=== PATIENT | female | born 1965 | race African-American/Black ===

== ENCOUNTER 2016-12-22 20:13 | Inpatient (IN) | payer OTHER ==
[~2016-12-22] VITALS: Ht 154.9 cm; Wt 88.1 kg
[~2016-12-22 20:13] MED LIST: HYDR12.58 PO; LISI10TA2 PO; LORA10TA68 PO; VALA500T PO
[2016-12-22 21:40] VITALS: BP 142/85
[2016-12-22] MEDS ORDERED: valACYclovir 500 MG TABLET. PO PRN (23:15)
[2016-12-22] MEDS ORDERED: CETIRIZINE HCL 10 MG TABLET PO PRN (23:15)
[2016-12-22] MEDS ORDERED: FLUT16SP NS (23:17)
[2016-12-22] MEDS: MORPHINE SULFATE 2 MG/ML DISP.SYRIN. IV PRN (23:31)
[2016-12-22] MEDS: IV NORMAL SALINE 1000ML BAG 1,000 ML IV SCH (23:35)
[2016-12-22] MEDS ORDERED: MONT10TA9 PO ×3 (23:42→23:47)
[2016-12-23] MEDS ORDERED: MONTELUKAST SODIUM 10 MG TABLET. PO ONE (00:15)
[2016-12-23 01:34] LABS: BASO # 0.1 x10^3/uL (0.0-0.2); BASO % 1 % (0-3); EOS % 1 % (0-3); HEMATOCRIT 36.3 % (36.0-47.0); HEMOGLOBIN 11.8 g/dL (12.0-15.5); LYMPH # 1.9 x10^3/uL (1.0-4.8); LYMPH % 21 % (24-48); MEAN CORPUSCULAR HEMOGLOBIN 28 pg (25-35); MEAN CORPUSCULAR HGB CONC 33 g/dL (31-37); MEAN CORPUSCULAR VOLUME 87 fL (79-100); MONO % 13 % (0-9); NEUT % 64 % (31-73); PLATELET COUNT 252 x10^3/uL (140-400); RED BLOOD COUNT 4.16 x10^6/uL (3.50-5.40); RED CELL DISTRIBUTION WIDTH 14.5 % (11.5-14.5); WHITE BLOOD COUNT 8.8 x10^3/uL (4.0-11.0)
[2016-12-23 01:56] LABS: CREATININE 0.8 mg/dL (0.6-1.0); GFR 91.1; POTASSIUM 3.6 mmol/L (3.5-5.1)
[2016-12-23 02:58] VITALS: BP 108/73
[2016-12-23] MEDS: ONDANSETRON PF 4 MG/2 ML VIAL. IV PRN (05:16)
[2016-12-23] MEDS: MORPHINE SULFATE 2 MG/ML DISP.SYRIN. IV PRN ×2 (05:17→14:07)
[2016-12-23 07:00] VITALS: BP 129/86
[2016-12-23] MEDS ORDERED: INFLUENZA VAX SCREEN BY RX. MC PRN (08:30)
[2016-12-23] MEDS ORDERED: MONTELUKAST SODIUM 10 MG TABLET. PO SCH ×3 (09:00→21:00)
[2016-12-23] MEDS: LISINOPRIL 10 MG TABLET PO SCH (09:01)
--- NOTE | 2016-12-23 09:06 | PDOC ---
Provider Note Provider Note Onc consult dictated- [id number] 10 cm uterine mass, favoring being fibroid Left abd pain, no menorrhagia Defer to bookkeeping service sales agent for likely outpt removal GENA COSTA DO Dec 23, 2016 09:06
[2016-12-23] MEDS ORDERED: FLU VACC QUAD 2016-17 (36MOS+)/PF 0.5 ML SYRINGE. VAX IM ONE (10:00)
--- NOTE | 2016-12-23 10:51 | CONS ---
DATE OF CONSULTATION: 12/23/2016 REFERRING PROVIDER: Dr. Hunter. REASON FOR CONSULTATION: Uterine mass. HISTORY OF PRESENT ILLNESS: The patient is a 51-year-old obese -[place] female, who presented to [facility] Emergency Room with nausea, vomiting and possible reported diarrhea. She had had some back and left-sided abdominal pain for the last week, which had increased in intensity. It actually is better when she has been active during the day, it increases in intensity when she is lying down flat or is having a bowel movement. She denies any menorrhagia. She states her periods are actually light. She has never had a colonoscopy, but denies any melena or hematochezia. She has intentionally been trying to lose weight and has lost [address] there showed a 10 cm uterine mass favoring a fibroid etiology. Pelvic ultrasound showed 2 large masses likely benign, but given the size, there is consideration could be leiomyosarcoma. Her pain has improved since admission. PAST MEDICAL HISTORY: Seasonal allergies, hypertension and obesity. PAST SURGICAL HISTORY: Left knee arthroscopy x 3. FAMILY HISTORY: Dad from kidney problems. Mom is alive and has had her thyroid remove. She has a sister, who has diabetes. SOCIAL HISTORY: She denies any tobacco, alcohol or drug use. She works as a retail sales professional and appears very active at baseline. ALLERGIES: No known drug allergies. CURRENT MEDICATIONS: Singulair, lisinopril, Flonase, Zofran, normal saline, Zyrtec, Valtrex and morphine. REVIEW OF SYSTEMS: Ten point review of systems completed and unremarkable with the exception of the back and abdominal pain. PHYSICAL EXAMINATION: VITAL SIGNS: Temperature 97.9, pulse 87, respiratory rate 18, blood pressure 129/86, 100% O2 on room air. GENERAL: She is alert and oriented, obese, overall though appears to be in excellent health and active at baseline, in no distress. HEENT: Extraocular muscles are intact. Sclerae are without icterus. Mucous membranes are moist. CARDIOVASCULAR: Heart is regular in rhythm and rate. LUNGS: Clear to auscultation bilaterally. ABDOMEN: Soft, no tenderness at this time. EXTREMITIES: No edema. NEUROLOGIC: No focal cranial deficits. IMAGING/LABORATORY: CT pelvic ultrasound from outside records reviewed as above. CBC and CMP were unremarkable. ASSESSMENT AND PLAN: The patient is a 51-year-old female with the following medical problems: 1. Large 10 cm uterine mass, favoring benign fibroid on imaging; however, given the size there was some concern that it could potentially be leiomyosarcoma. I will defer further evaluation to Gynecology and they can involve gynecologic oncology as an outpatient if needed. She appears to have improved pain control and is otherwise stable at this time. Discussed with Dr. Hunter. GENA COSTA DO DR: LILI/jose JOB#: [id number] / [id number] GENTRY
[2016-12-23 11:00] VITALS: BP 116/66
[2016-12-23] MEDS: HYDROCHLOROTHIAZIDE 12.5 MG CAPSULE. PO SCH (13:00)
[2016-12-23] MEDS: FLUTICASONE 50MCG/NASAL SPRAY 16GM BOTTLE. NS SCH (13:01)
--- NOTE | 2016-12-23 13:45 | HP ---
ADMIT DATE: 12/23/2016 CHIEF COMPLAINT: Pelvic mass. HISTORY OF PRESENT ILLNESS: The patient is a pleasant 51-year-old female who presented to [facility] ER last night with abdominal pain. They did some imaging, confirmed a uterine mass. They called me. We have transferred the patient here for evaluation and want to be consulting Hematology and Oncology, and Dr. Maritza Hollingsworth just saw the patient this morning and thinks this might be actually just a fibroid. She would like me to consult LINE ORDERING CLINICIAN. I have put a consult into Dr. Kurtz, and I called him as well. PAST MEDICAL AND SURGICAL HISTORY: Allergic rhinitis, hypertension, and obesity. Left knee surgery x 3. ALLERGIES: None. FAMILY HISTORY: Hypertension. SOCIAL HISTORY: She does not drink, smoke, or take drugs. 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 MEDICATIONS: Reviewed. Please refer to the MAR. REVIEW OF SYSTEMS: GENERAL: No history of weight change, weakness or fevers. SKIN: No bruising, hair changes, or rashes. EYES: No blurred, double, or loss of vision. NOSE AND THROAT: No history of nosebleeds, hoarseness, or sore throat. HEART: No history of palpitations, chest pain. LUNGS: Denies cough, hemoptysis, wheezing or shortness of breath. GASTROINTESTINAL: She complains of lower abdominal pain. GENITOURINARY: No history of frequency, urgency, hesitancy, or nocturia. NEUROLOGIC: Denies history of numbness, tingling, tremor, or weakness. PSYCHIATRIC: No history of panic, anxiety, or depression. ENDOCRINE: No history of heat or cold intolerance, polyuria, or polydipsia. EXTREMITIES: Denies muscle weakness, joint pain, pain on walking, or stiffness. PHYSICAL EXAMINATION: VITAL SIGNS: Temperature afebrile, pulse 62, respirations 20, and blood pressure 108/73. GENERAL: She is alert, cooperative. Her friend is present. HEART: Normal S1 and S2. LUNGS: Clear. ABDOMEN: Soft. Decreased bowel sounds, tender in the lower quadrants. EXTREMITIES: No edema. SKIN: No rashes. PSYCHIATRIC: She is stable. VASCULAR: Good capillary refill. ENDOCRINE: No thyromegaly. LYMPHATICS: No cervical nodes. HEMATOPOIETIC: No bruising. LABORATORY DATA: White count 8.8, hemoglobin 11.8, and platelets 252. Electrolytes are normal other than a glucose of 102. ASSESSMENT AND PLAN: Pelvic mass, suspect a uterine fibroid versus possible leiomyosarcoma. The patient has been admitted. We are consulting LINE ORDERING CLINICIAN and Oncology. Please see above. For now, continue home medications, IV fluids, clear liquid diet, p.r.n. morphine. Repeat her labs in the morning. ROSALIND ANDRADE DO DR: GRISEL/jose JOB#: [id number] / [id number]
[2016-12-23] MEDS: IV NORMAL SALINE 1000ML BAG 1,000 ML IV SCH (14:07)
[2016-12-23 15:00] VITALS: BP 119/77
[2016-12-23 19:00] VITALS: BP 113/68
--- NOTE | 2016-12-23 19:55 | PDOC2 ---
CONSULT Date of Consult Date of Consult DATE: 12/23/16 TIME: 19:50 Reason for Consult Reason for Consult: Abd pain Referring Physician Referring Physician: Dr. Hunter Identification/Chief Complaint Chief Complaint Abd pain Source Source: Chart review, Patient History of Present Illness Reason for Visit: 51 y/o G0 presented to ED at [facility] due to severe abd pain that started 4 days ago. The pain continued to worsen. She also reports dysuria and constipation. Her LMP is 12/03/16. Menses every 30 days, lasts 2-3 days and light flow. No control at this time. Last pap smear was 4 years ago. She reports family h/o breast cancer of 2 aunts dx at age of 40. Past Medical History Cardiovascular: No pertinent hx Pulmonary: No pertinent hx Psych: No pertinent hx Rheumatologic: No pertinent hx Endocrine: No pertinent hx Dermatology: No pertinent hx Past Surgical History Past Surgical History: Cholecystectomy, Other (Left knee x 3) Current Problem List Problem List Problems Medical Problems: (1) Uterine mass Status: Acute Current Medications Current Medications Current Medications Sodium Chloride (Iv Sodium Chloride 0.9% 1000ml Bag) 1,000 ml @ 75 mls/hr [id number] IV Last administered on 12/23/16 14:07; Start 12/22/16 at 23:50 Morphine Sulfate 2 mg PRN Q2HR PRN IV SEVERE PAIN Last administered on 14:07; Start 12/22/16 at 23:15 Valacyclovir HCl (Valtrex) 500 mg PRN TID PRN PO FLARE UP; Start 12/22/16 at 23 :15 Cetirizine HCl (Zyrtec) 10 mg PRN DAILY PRN PO ALLERGIES; Start 12/22/16 at 23: 15 Fluticasone Propionate (Flonase) 2 spray DAILY NS Last administered on 13:01; Start 12/23/16 at 09:00 Lisinopril (Prinivil) 10 mg DAILY PO Last administered on 12/23/16 09:01; Start 12/23/16 at 09:00 Montelukast Sodium (Singulair) 10 mg DAILY PO ; Start 12/23/16 at 09:00; Status UNV Montelukast Sodium (Singulair) 10 mg HS PO ; Start 12/23/16 at 21:00 Montelukast Sodium (Singulair) 10 mg 1X ONCE PO Last administered on 00:15; Start 12/23/16 at 00:15; Stop 12/23/16 at 00:16; Status DC Ondansetron HCl (Zofran) 4 mg PRN Q6HRS PRN IV NAUSEA/VOMITING Last administered on 12/23/16 05:16; Start 12/23/16 at 05:15 Info (Do NOT chart on this placeholder) 1 each PRN 1X PRN MC SEE COMMENTS; Start 12/23/16 at 08:30; Status UNV Influenza Virus Vaccine Quadrival (Fluarix Quad [id number] Syringe) 0.5 ml ONCE ONCE VAX IM ; Start 12/23/16 at 10:00; Stop 12/23/16 at 10:01; Status DC Montelukast Sodium (Singulair) 10 mg BID PO ; Start 12/23/16 at 21:00; Status UNV Hydrochlorothiazide (Microzide) 12.5 mg DAILY PO Last administered on 13:00; Start 12/23/16 at 12:30 Active Scripts Active Reported Montelukast Sodium Tablet (Montelukast Sodium) 10 Mg Tablet 10 Mg PO HS Montelukast Sodium Tablet (Montelukast Sodium) 10 Mg Tablet 1 Tab PO DAILY Montelukast Sodium Tablet (Montelukast Sodium) 10 Mg Tablet 1 Tab PO BID Fluticasone Propionate Nasal [place] (Fluticasone Propionate) 16 Gm [place].susp 2 [place] NS DAILY PRN Valacyclovir (Valacyclovir Hcl) 500 Mg Tablet 500 Mg PO Hydrochlorothiazide Tablet (Hydrochlorothiazide) 12.5 Mg Tablet 12.5 Mg PO DAILY Lisinopril 10 Mg Tablet 10 Mg PO DAILY Allergies Allergies: Coded Allergies: No Known Drug Allergies (Unverified , 02/24/14) ROS General: No: Appetite, Chills, Fatigue, Malaise, Night Sweats, Other PSYCHOLOGICAL ROS: No: Anxiety, Behavioral Disorder, Concentration difficultie , Decreased libido, Depression, Disorientation, Hallucinations, Hostility, Irritablity, Memory difficulties, Mood Swings, Obsessive thoughts, Other, Physical abuse, Sexual abuse, Sleep disturbances, Suicidal ideation Eyes: No Blurry vision, No Decreased vision, No Double vision, No Dry eyes, No Excessive tearing, No Eye Pain, No Itchy Eyes, No Loss of vision, No Other, No Photophobia, No Scotomata, No Uses contacts, No Uses glasses HEENT: No: Epistaxis, Heacaches, Hearing change, Nasal congestion, Nasal discharge, Oral lesions, Other, Sinus pain, Sneezing, Snoring, Sore Throat, Tinnitus, Vertigo, Visual Changes, Vocal changes ALLERGY AND IMMUNOLOGY: No: Hives, Insect Bite Sensitivity, Itchy/Watery Eyes, Nasal Congestion, Other, Post Nasal Drip, Seasonal Allergies Hematological and Lymphatic: No: Bleeding Problems, Blood Clots, Blood Transfusions, Brusing, Night Sweats, Other, Pallor, Swollen Lymph Nodes ENDOCRINE: No: Breast Changes, Galactorrhea, Hair Pattern Changes, Hot Flashes , Malaise/lethargy, Mood Swings, Other, Palpitations, Polydipsia/polyuria, Skin Changes, Temperature Intolerance, Unexpected Weight Changes Breast: No New/Changing Breast Lumps, No Nipple changes, No Nipple discharge, No Other Respiratory: No: Cough, Hemoptysis, Orthopnea, Other, Pleuritic Pain, SOB with excertion, Shortness of breath, Sputum Changes, Stridor, Tachypnea, Wheezing Cardiovascular: No Chest Pain, No Edema, No Lt Headedness, No Orthopnea, No Other, No Palpitations, No Paroxysmal Noc. Dyspnea Gastrointestinal: Yes Abdominal Pain, No Constipation, No Diarrhea, No Hematochezia, No Melena, No Nausea, No Other , No Vomiting Genitourinary: YES Dysuria, YES Frequency, No , No , No , No , No , No , No , No Discharge, No Flank Pain, No Hematuria , No Incontinence, No Other, No Pain, No Retention, No Urgency Physical Exam General: Alert, Oriented X3, Cooperative HEENT: Atraumatic Lungs: Clear to auscultation Heart: Regular rate Abdomen: Normal bowel sounds, Soft, Other (mild to moderate tenderness; no rebound tenderness) Extremities: No edema Neuro: Normal gait, Normal speech Vitals VITALS Vital Signs Date Time Temp Pulse Resp B/P Pulse Ox O2 Delivery O2 Flow Rate FiO2 12/23/16 15:00 98.1 71 17 119/77 94 Room Air 98.1 Labs Labs Laboratory Tests Test 12/23/16 00:05 White Blood Count 8.8x10^3/uL (4.0-11.0) Red Blood Count 4.16x10^6/uL (3.50-5.40) Hemoglobin 11.8g/dL (12.0-15.5) Hematocrit 36.3% (36.0-47.0) Mean Corpuscular Volume 87fL (79-100) Mean Corpuscular Hemoglobin 28pg (25-35) Mean Corpuscular Hemoglobin Concent 33g/dL (31-37) Red Cell Distribution Width 14.5% (11.5-14.5) Platelet Count 252x10^3/uL (140-400) Neutrophils (%) (Auto) 64% (31-73) Lymphocytes (%) (Auto) 21% (24-48) Monocytes (%) (Auto) 13% (0-9) Eosinophils (%) (Auto) 1% (0-3) Basophils (%) (Auto) 1% (0-3) Neutrophils # (Auto) 5.6x10^3uL (1.8-7.7) Lymphocytes # (Auto) 1.9x10^3/uL (1.0-4.8) Monocytes # (Auto) 1.1x10^3/uL (0.0-1.1) Eosinophils # (Auto) 0.1x10^3/uL (0.0-0.7) Basophils # (Auto) 0.1x10^3/uL (0.0-0.2) Sodium Level 143mmol/L (136-145) Potassium Level 3.6mmol/L (3.5-5.1) Chloride Level 107mmol/L (98-107) Carbon Dioxide Level 30mmol/L (21-32) Anion Gap 6 (6-14) Blood Urea Nitrogen 12mg/dL (7-20) Creatinine 0.8mg/dL (0.6-1.0) Estimated GFR (Cockcroft-Gault) 91.1 Glucose Level 102mg/dL (70-99) Calcium Level 9.0mg/dL (8.5-10.1) Laboratory Tests Test 12/23/16 00:05 White Blood Count 8.8x10^3/uL (4.0-11.0) Red Blood Count 4.16x10^6/uL (3.50-5.40) Hemoglobin 11.8g/dL (12.0-15.5) Hematocrit 36.3% (36.0-47.0) Mean Corpuscular Volume 87fL (79-100) Mean Corpuscular Hemoglobin 28pg (25-35) Mean Corpuscular Hemoglobin Concent 33g/dL (31-37) Red Cell Distribution Width 14.5% (11.5-14.5) Platelet Count 252x10^3/uL (140-400) Neutrophils (%) (Auto) 64% (31-73) Lymphocytes (%) (Auto) 21% (24-48) Monocytes (%) (Auto) 13% (0-9) Eosinophils (%) (Auto) 1% (0-3) Basophils (%) (Auto) 1% (0-3) Neutrophils # (Auto) 5.6x10^3uL (1.8-7.7) Lymphocytes # (Auto) 1.9x10^3/uL (1.0-4.8) Monocytes # (Auto) 1.1x10^3/uL (0.0-1.1) Eosinophils # (Auto) 0.1x10^3/uL (0.0-0.7) Basophils # (Auto) 0.1x10^3/uL (0.0-0.2) Sodium Level 143mmol/L (136-145) Potassium Level 3.6mmol/L (3.5-5.1) Chloride Level 107mmol/L (98-107) Carbon Dioxide Level 30mmol/L (21-32) Anion Gap 6 (6-14) Blood Urea Nitrogen 12mg/dL (7-20) Creatinine 0.8mg/dL (0.6-1.0) Estimated GFR (Cockcroft-Gault) 91.1 Glucose Level 102mg/dL (70-99) Calcium Level 9.0mg/dL (8.5-10.1) Assessment/Plan Assessment/Plan A: Fibroid uterus: possible degenerating fibroid P: Pain management. If pain management successful, then f/u in clinic to arrange ROSALES & BSO. Will follow. Thank you for consult. ANTONIO KIMBLE Jr, MD Dec 23, 2016 19:55
[2016-12-23] MEDS ORDERED: IBUPROFEN 800 MG TABLET. PO PRN (20:00)
[2016-12-23] MEDS ORDERED: OXYCODONE/APAP 7.5/325 TABLET. PO PRN (20:00)
[2016-12-23 23:00] VITALS: BP 119/54
[2016-12-24 03:00] VITALS: BP 123/74
[2016-12-24] MEDS: IV NORMAL SALINE 1000ML BAG 1,000 ML IV SCH ×2 (03:06→15:50)
[2016-12-24 07:00] VITALS: BP 136/85
[2016-12-24] MEDS: ONDANSETRON PF 4 MG/2 ML VIAL. IV PRN (07:36)
[2016-12-24] MEDS: MORPHINE SULFATE 2 MG/ML DISP.SYRIN. IV PRN (07:37)
--- NOTE | 2016-12-24 08:39 | PDOC ---
PROGRESS NOTES Chief Complaint Chief Complaint Uterine mass Pelvic Pain HTN H/o Left Knee Surgery x3 Obesity History of Present Illness History of Present Illness Patient was laying in the bed at the time of evaluation, she was feeling better , pain has improved but still has intermittent pain episodes which are well controlled with prn pain meds, no new complains. Dr. Kurtz will follow her in op for uterine mass, plan of care discussed with pt. and RN. Vitals Vitals Vital Signs Date Time Temp Pulse Resp B/P Pulse Ox O2 Delivery O2 Flow Rate FiO2 12/24/16 07:37 Room Air 12/24/16 07:25 20 12/24/16 03:00 99.3 85 123/74 96 99.3 Physical Exam General: Alert, Oriented X3, Cooperative Heart: Regular rate, No murmurs Lungs: Clear Abdomen: Normal bowel sounds, Soft, Other (mild to moderate tenderness; no rebound tenderness) Extremities: No edema Skin: No rashes, No significant lesion Review of Systems Review of Systems Denies fever, chills Denies n/v/d Denies SOB, CP intermittent episodes of pelvic pain well controlled with pain meds Assessment and Plan Assessmemt and Plan Assessment: Uterine mass Pelvic Pain HTN H/o Left Knee Surgery x3 Obesity Plan: Probable discharge home today PO pain meds for home Plan of care discussed with RN and pt. Appreciate subspecialities inputs and recommendations Problems Medical Problems: (1) Uterine mass Status: Acute Problems: Comment Review of Relevant I have reviewed the following items wanda (where applicable) has been applied. Labs Laboratory Tests Test 12/23/16 00:05 White Blood Count 8.8x10^3/uL (4.0-11.0) Red Blood Count 4.16x10^6/uL (3.50-5.40) Hemoglobin 11.8g/dL (12.0-15.5) Hematocrit 36.3% (36.0-47.0) Mean Corpuscular Volume 87fL (79-100) Mean Corpuscular Hemoglobin 28pg (25-35) Mean Corpuscular Hemoglobin Concent 33g/dL (31-37) Red Cell Distribution Width 14.5% (11.5-14.5) Platelet Count 252x10^3/uL (140-400) Neutrophils (%) (Auto) 64% (31-73) Lymphocytes (%) (Auto) 21% (24-48) Monocytes (%) (Auto) 13% (0-9) Eosinophils (%) (Auto) 1% (0-3) Basophils (%) (Auto) 1% (0-3) Neutrophils # (Auto) 5.6x10^3uL (1.8-7.7) Lymphocytes # (Auto) 1.9x10^3/uL (1.0-4.8) Monocytes # (Auto) 1.1x10^3/uL (0.0-1.1) Eosinophils # (Auto) 0.1x10^3/uL (0.0-0.7) Basophils # (Auto) 0.1x10^3/uL (0.0-0.2) Sodium Level 143mmol/L (136-145) Potassium Level 3.6mmol/L (3.5-5.1) Chloride Level 107mmol/L (98-107) Carbon Dioxide Level 30mmol/L (21-32) Anion Gap 6 (6-14) Blood Urea Nitrogen 12mg/dL (7-20) Creatinine 0.8mg/dL (0.6-1.0) Estimated GFR (Cockcroft-Gault) 91.1 Glucose Level 102mg/dL (70-99) Calcium Level 9.0mg/dL (8.5-10.1) Medications Current Medications Sodium Chloride (Iv Sodium Chloride 0.9% 1000ml Bag) 1,000 ml @ 75 mls/hr [id number] IV Last administered on 12/24/16 03:06; Start 12/22/16 at 23:50 Morphine Sulfate 2 mg PRN Q2HR PRN IV SEVERE PAIN Last administered on 07:37; Start 12/22/16 at 23:15 Valacyclovir HCl (Valtrex) 500 mg PRN TID PRN PO FLARE UP; Start 12/22/16 at 23 :15 Cetirizine HCl (Zyrtec) 10 mg PRN DAILY PRN PO ALLERGIES; Start 12/22/16 at 23: 15 Fluticasone Propionate (Flonase) 2 spray DAILY NS Last administered on 13:01; Start 12/23/16 at 09:00 Lisinopril (Prinivil) 10 mg DAILY PO Last administered on 12/23/16 09:01; Start 12/23/16 at 09:00 Montelukast Sodium (Singulair) 10 mg DAILY PO ; Start 12/23/16 at 09:00; Status UNV Montelukast Sodium (Singulair) 10 mg HS PO Last administered on 12/23/16 21:52 ; Start 12/23/16 at 21:00 Montelukast Sodium (Singulair) 10 mg 1X ONCE PO Last administered on 00:15; Start 12/23/16 at 00:15; Stop 12/23/16 at 00:16; Status DC Ondansetron HCl (Zofran) 4 mg PRN Q6HRS PRN IV NAUSEA/VOMITING Last administered on 12/24/16 07:36; Start 12/23/16 at 05:15 Info (Do NOT chart on this placeholder) 1 each PRN 1X PRN MC SEE COMMENTS; Start 12/23/16 at 08:30; Status UNV Influenza Virus Vaccine Quadrival (Fluarix Quad [id number] Syringe) 0.5 ml ONCE ONCE VAX IM ; Start 12/23/16 at 10:00; Stop 12/23/16 at 10:01; Status DC Montelukast Sodium (Singulair) 10 mg BID PO ; Start 12/23/16 at 21:00; Status UNV Hydrochlorothiazide (Microzide) 12.5 mg DAILY PO Last administered on 13:00; Start 12/23/16 at 12:30 Ibuprofen (Motrin) 800 mg PRN Q8HRS PRN PO INFLAMMATION; Start 12/23/16 at 20: 00 Oxycodone/ Acetaminophen (Percocet 7.5/ 325) 1 tab PRN Q4HRS PRN PO PAIN Last administered on 12/24/16 05:38; Start 12/23/16 at 20:00 Active Scripts Active Reported Montelukast Sodium Tablet (Montelukast Sodium) 10 Mg Tablet 10 Mg PO HS Montelukast Sodium Tablet (Montelukast Sodium) 10 Mg Tablet 1 Tab PO DAILY Montelukast Sodium Tablet (Montelukast Sodium) 10 Mg Tablet 1 Tab PO BID Fluticasone Propionate Nasal [place] (Fluticasone Propionate) 16 Gm [place].susp 2 [place] NS DAILY PRN Valacyclovir (Valacyclovir Hcl) 500 Mg Tablet 500 Mg PO Hydrochlorothiazide Tablet (Hydrochlorothiazide) 12.5 Mg Tablet 12.5 Mg PO DAILY Lisinopril 10 Mg Tablet 10 Mg PO DAILY Vitals/I & O Vital Sign - Last 24 Hours 12/23/16 12/23/16 12/23/16 12/23/16 09:01 11:00 14:07 14:37 Temp 97.7 97.7 Pulse 88 64 Resp 20 20 B/P 129/86 116/66 Pulse Ox 95 95 94 O2 Delivery Room Air Room Air Room Air 12/23/16 12/23/16 12/23/16 12/23/16 15:00 19:00 21:55 23:00 Temp 98.1 97.9 98.8 98.1 97.9 98.8 Pulse 71 89 66 Resp 18 18 B/P 119/77 113/68 119/54 Pulse Ox 94 96 95 O2 Delivery Room Air Room Air Room Air Room Air 12/24/16 12/24/16 12/24/16 12/24/16 03:00 05:38 07:25 07:37 Temp 99.3 99.3 Pulse 85 Resp 18 20 20 B/P 123/74 Pulse Ox 96 O2 Delivery Room Air Room Air Room Air Intake and Output 12/23/16 12/23/16 12/24/16 15:00 23:00 07:00 Intake Total 450 ml 900 ml 2124 ml Balance 450 ml 900 ml 2124 ml ROSALIND ANDRADE III DO Dec 24, 2016 08:39
--- NOTE | 2016-12-24 09:07 | RAD ---
Indication: Right upper extremity swelling. Technique: Grayscale, color-flow, and spectral waveform analysis of the right upper extremity venous collecting system was performed. No comparison is available. Findings: All visualized deep vein segments are compressible with normal phasicity of waveform and augmentation. No deep vein thrombosis on grayscale or color imaging is apparent. A short segment of the cephalic vein is thrombosed at this site of previous IV access. Cephalic vein is a superficial vein. Impression: 1. No deep vein thrombosis. 2. Thrombosis at the site of previous IV access in the cephalic vein, cephalic vein is a superficial vein.
[2016-12-24 11:00] VITALS: BP 107/72
[2016-12-24] MEDS: HYDROCHLOROTHIAZIDE 12.5 MG CAPSULE. PO SCH (11:35)
[2016-12-24] MEDS: LISINOPRIL 10 MG TABLET PO SCH (11:36)
[2016-12-24] MEDS: FLUTICASONE 50MCG/NASAL SPRAY 16GM BOTTLE. NS SCH (11:37)
[2016-12-24 15:00] VITALS: BP 128/76
== END 2016-12-24 15:40 | disposition home or self-care (01) | DRG 761 ==
LOC: 5 NORTH 21:39
PROVIDERS: ADMIT Internal Medicine; ATTEND Internal Medicine
DX: D25.9 Leiomyoma of uterus, unspecified (principal); E66.9 Obesity, unspecified; I10 Essential (primary) hypertension; K59.00 Constipation, unspecified; Z80.3 Family history of malignant neoplasm of breast; Z82.49 Family history of ischemic heart disease and other diseases of the circulatory system; Z83.3 Family history of diabetes mellitus; Z90.49 Acquired absence of other specified parts of digestive tract
CPT/HCPCS: 36415; 80048; 85027; 93971; J2270; J2405; J7030

== ENCOUNTER 2017-01-16 07:54 | Inpatient (IN) | payer OTHER ==
[~2017-01-16] VITALS: Ht 154.9 cm; Wt 82.1 kg
[~2017-01-16 07:54] MED LIST changes: +FLUT16SP NS; +IBUP-1027 PO; +INUL1TAB PO; +IV RINGERS,LACTATED 1000ML 1,000 ML IV SCH; +LIDOCAINE 1% 1 ML SYRINGE. ID PRN; +LISI1TAB3 PO; +MONT10TA9 PO; +MORPHINE SULFATE 2 MG/ML DISP.SYRIN. IV PRN; +ONDANSETRON PF 4 MG/2 ML VIAL. IV PRN; +PROCHLORPERAZINE 10 MG/2 ML VIAL. IV PRN; +fentaNYL PF VIAL 100 MCG/2 ML VIAL IV PRN
[2017-01-16] MEDS ORDERED: SURGICEL HEMOSTAT 4X8 EACH. ONE ×2 (08:02→12:18)
[2017-01-16 08:50] LABS: NEG OBC UR NEG; POS OBC UR POS
[2017-01-16 08:52] LABS: BASO % 1 % (0-3); EOS % 4 % (0-3); HEMATOCRIT 38.6 % (36.0-47.0); HEMOGLOBIN 12.7 g/dL (12.0-15.5); LYMPH # 2.1 x10^3/uL (1.0-4.8); LYMPH % 28 % (24-48); MEAN CORPUSCULAR HEMOGLOBIN 29 pg (25-35); MEAN CORPUSCULAR HGB CONC 33 g/dL (31-37); MEAN CORPUSCULAR VOLUME 87 fL (79-100); MONO % 10 % (0-9); NEUT % 57 % (31-73); PLATELET COUNT 268 x10^3/uL (140-400); RED BLOOD COUNT 4.43 x10^6/uL (3.50-5.40); RED CELL DISTRIBUTION WIDTH 15.1 % (11.5-14.5); WHITE BLOOD COUNT 7.3 x10^3/uL (4.0-11.0)
[2017-01-16] MEDS ORDERED: SCOPOLAMINE 1.5MG PATCH. TD ONE (09:00)
[2017-01-16] MEDS ORDERED: DESFLURANE 61 TO 120 MINUTES IH ONE ×2 (09:19→11:51)
[2017-01-16] MEDS ORDERED: fentaNYL PF VIAL 100 MCG/2 ML VIAL ONE (09:19)
[2017-01-16] MEDS ORDERED: ROCURONIUM 50 MG/5 ML VIAL. ONE ×2 (09:19→11:10)
[2017-01-16] MEDS ORDERED: MIDAZOLAM HCL/PF 2 MG/2 ML VIAL. ONE (09:19)
[2017-01-16] MEDS ORDERED: PROPOFOL 20 ML IV ONE (09:20)
[2017-01-16] MEDS ORDERED: LIDOCAINE 2% 100 MG/5 ML SYRINGE. ONE (09:20)
[2017-01-16] MEDS ORDERED: DEXAMETHASONE SOD PHOS 20 MG/5 ML VIAL. ONE (09:20)
[2017-01-16] MEDS ORDERED: ONDANSETRON PF 4 MG/2 ML VIAL. ONE (09:20)
[2017-01-16] MEDS ORDERED: MORPHINE SULFATE 10 MG/ML VIAL. ONE (11:11)
[2017-01-16] MEDS ORDERED: ESMOLOL 100 MG/10 ML VIAL. IV ONE (11:12)
[2017-01-16] MEDS ORDERED: PHENYLEPHRINE in 0.9% NACL PF 1 MG/10 ML DISP.SYRIN. IV ONE (11:25)
[2017-01-16] MEDS ORDERED: NEOSTIGMINE METHYLSULFATE 5 MG/5 ML SYRINGE. ONE (11:29)
[2017-01-16] MEDS ORDERED: GLYCOPYRROLATE 1 MG/5 ML VIAL. ONE (11:29)
[2017-01-16] MEDS ORDERED: DESFLURANE > 120 MINUTES IH ONE (11:51)
[2017-01-16] MEDS ORDERED: SEVOFLURANE > 120 MINUTES. IH ONE (11:51)
[2017-01-16] MEDS ORDERED: KETOROLAC 60 MG/2 ML INJ FOR OR. ONE (11:52)
--- NOTE | 2017-01-16 12:12 | PDOC ---
BRIEF OPERATIVE NOTE Pre-Op Diagnosis 1. Fibroids 2. AUB Post-Op Diagnosis Same Procedure Performed ROSALES & BSO Surgeon Dr. Kurtz Anesthesia Type: General Blood Loss 50 ml Specimens Obtained uterus, cervix, myles. fallopian tubes and ovaries Findings enlarged, fibroid uterus; nml fallopian tubes and ovaries Complications none Additional Remarks pt. ANTONIO Almendarez Jr, MD Jan 16, 2017 12:12
[2017-01-16] MEDS ORDERED: diphenhydrAMINE HCL 25 MG CAPSULE PO PRN (12:15)
[2017-01-16] MEDS ORDERED: ZOLPIDEM 5 MG TABLET. PO PRN (12:15)
[2017-01-16] MEDS ORDERED: DEXTROSE 50% 25 GM / 50ML DISP.SYRIN. IV PRN (12:15)
[2017-01-16] MEDS ORDERED: CALCIUM CARBONATE 500 MG TAB.CHEW PO PRN (12:15)
[2017-01-16] MEDS ORDERED: 0.9 % SODIUM CHLORIDE 10 ML DISP.SYRIN. IV PRN (12:15)
[2017-01-16] MEDS ORDERED: ONDANSETRON PF 4 MG/2 ML VIAL. IV PRN (12:15)
[2017-01-16] MEDS ORDERED: PROCHLORPERAZINE 10 MG/2 ML VIAL. IV PRN (12:15)
[2017-01-16] MEDS ORDERED: diphenhydrAMINE 50 MG/ML VIAL IV PRN (12:45)
[2017-01-16] MEDS: fentaNYL PF VIAL 100 MCG/2 ML VIAL IV PRN ×2 (12:48→12:59)
[2017-01-16] MEDS: KETOROLAC TROMETHAMINE 30 MG/ML INJ. IV PRN ×2 (12:48→20:37)
[2017-01-16] MEDS: HYDROmorphone 2 MG/ML VIAL IV PRN ×3 (13:17→13:58)
[2017-01-16 14:00] VITALS: BP 91/56
[2017-01-16 14:15] VITALS: BP 99/58
[2017-01-16 14:30] VITALS: BP 115/65
[2017-01-16 17:00] VITALS: BP 115/64
--- NOTE | 2017-01-16 17:58 | OP ---
DATE OF SURGERY: PREOPERATIVE DIAGNOSES: 1. Fibroids. 2. Abnormal uterine bleeding. POSTOPERATIVE DIAGNOSES: 1. Fibroids. 2. Abnormal uterine bleeding. PROCEDURE: TAHBSO. SURGEON: Antonio Kurtz M.D. ANESTHESIA: GETA. ESTIMATED BLOOD LOSS: 50 mL. COMPLICATIONS: None. FINDINGS: Enlarged fibroid uterus, normal fallopian tubes and ovaries bilaterally. SUMMARY: A 51-year-old female with long history of abnormal uterine bleeding and fibroid uterus. The patient required TAHBSO. She was counseled on risks, benefits and expectations and voiced a clear understanding to proceed. DESCRIPTION OF PROCEDURE: The patient was taken to the surgery suite and placed in dorsal supine position. She was prepped with prepped with Betadine for vaginal prep and ChloraPrep for abdominal prep. After adequate anesthesia, a Pfannenstiel skin incision was made with scalpel down to the fascia. Fascia was extended laterally using curved Almanzar scissors. The superior edge of the fascia was grasped with two Tiffanie clamps and dissected free of the abdominal rectus muscle superiorly using blunt dissection along with Bovie cautery. The same process took place inferiorly. The peritoneum was grasped with 2 hemostats and entered sharply with Metzenbaum scissors. This incision was extended superiorly and inferiorly. Jose ring retractor was placed. A large fibroid uterus was palpated and visualized. There were multiple fibroids on the uterus extended into the right broad ligament as well as into the posterior portion of the fundus. The right infundibulopelvic ligament was isolated, clamped with two curved Macrina clamps, cut, and suture ligated. The right round ligament was clamped with two curved Macrina clamps, cut with curved Almanzar scissors, and suture ligated with 2-0 Vicryl suture and the right adnexa including 7 cm fibroid was clamped with curved Macrina clamps, excised with curved Almanzar scissors. The left round ligament was then clamped bilaterally with curved Macrina clamps, cut and suture ligated with 2-0 Vicryl suture. The left infundibulopelvic ligament was isolated and clamped with two curved Macrina clamps, cut and tied with 2-0 Vicryl suture. We were then able to mobilize the uterus more so in which there was an 13 cm size fibroid. Once this was exposed, bladder flap was created with the addition of Metzenbaum scissors and moist sponge stick. The uterus and large fibroid were then clamped at the level of the lower uterine segment with curved Macrina clamps and excised using Bovie cautery. The cervix was then further skeletonized in which the uterine artery was clamped bilaterally with curved Macrina clamps, cut and suture ligated with 2-0 Vicryl suture . This also took place with the uterosacral ligaments. Additional cut was placed just adjacent to the cervix bilaterally with curved Macrina clamps and the Mahendra scissors were then utilized to excise the remaining portion of the cervix. The vaginal cuff was reapproximated with 2-0 Vicryl suture in a [id number] manner incorporating the uterosacral ligaments bilaterally. Irrigation was utilized to verify good hemostasis. Joanna was then placed over the vaginal cuff. The Jose ring retractor was removed. The peritoneum was reapproximated using 1-0 Vicryl suture in a running fashion. Fascia was reapproximated using 0 Vicryl suture in a running fashion. Skin was reapproximated using 4-0 Vicryl suture in subcuticular manner. The patient tolerated the procedure well and was taken to recovery room in stable condition. Sponge and needle count correct x 3. ANTONIO KURTZ MD DR: MADELINE/jose JOB#: [id number] / [id number]
[2017-01-16] MEDS: GABAPENTIN 300 MG CAPSULE. PO SCH (23:03)
[2017-01-16 23:22] VITALS: BP 131/83
[2017-01-17 02:53] VITALS: BP 126/85
[2017-01-17 04:33] LABS: BASO % 0 % (0-3); EOS % 0 % (0-3); HEMATOCRIT 31.2 % (36.0-47.0); HEMOGLOBIN 10.2 g/dL (12.0-15.5); LYMPH # 1.2 x10^3/uL (1.0-4.8); LYMPH % 11 % (24-48); MEAN CORPUSCULAR HEMOGLOBIN 28 pg (25-35); MEAN CORPUSCULAR HGB CONC 33 g/dL (31-37); MEAN CORPUSCULAR VOLUME 86 fL (79-100); MONO % 10 % (0-9); NEUT % 79 % (31-73); PLATELET COUNT 222 x10^3/uL (140-400); RED BLOOD COUNT 3.61 x10^6/uL (3.50-5.40); RED CELL DISTRIBUTION WIDTH 14.7 % (11.5-14.5); WHITE BLOOD COUNT 11.4 x10^3/uL (4.0-11.0)
[2017-01-17] MEDS: KETOROLAC TROMETHAMINE 30 MG/ML INJ. IV PRN (06:11)
[2017-01-17] MEDS: GABAPENTIN 300 MG CAPSULE. PO SCH ×3 (06:11→21:28)
[2017-01-17 06:28] VITALS: BP 118/64
--- NOTE | 2017-01-17 13:24 | PDOC ---
SURGICAL PROGRESS NOTE Subjective Pt. feeling well. Pain controlled. She is tolerating liquids, ambulating in room and voiding without difficulty. Vital Signs Vital Signs Date Time Temp Pulse Resp B/P Pulse Ox O2 Delivery O2 Flow Rate FiO2 01/17/17 08:55 Room Air 01/17/17 06:28 99.9 89 18 118/64 99.9 01/17/17 02:53 97 01/16/17 14:30 2.0 I&O Intake and Output 01/17/17 07:00 Intake Total 665 ml Output Total 675 ml Balance -10 ml Intake Oral 665 ml Output Urine Total 625 ml Estimated Blood Loss 50 ml PATIENT HAS A LAWRENCE: No General: Alert, Oriented X3, Cooperative HEENT: Atraumatic Lungs: Clear to auscultation Heart: Regular rate Abdomen: Normal bowel sounds, Soft, No masses, Other (mild tenderness) Extremities: No edema Psych/Mental Status: Mental status NL Labs Laboratory Tests Test 01/16/17 08:20 01/17/17 03:48 White Blood Count 7.3x10^3/uL (4.0-11.0) 11.4x10^3/uL (4.0-11.0) Red Blood Count 4.43x10^6/uL (3.50-5.40) 3.61x10^6/uL (3.50-5.40) Hemoglobin 12.7g/dL (12.0-15.5) 10.2g/dL (12.0-15.5) Hematocrit 38.6% (36.0-47.0) 31.2% (36.0-47.0) Mean Corpuscular Volume 87fL (79-100) 86fL (79-100) Mean Corpuscular Hemoglobin 29pg (25-35) 28pg (25-35) Mean Corpuscular Hemoglobin Concent 33g/dL (31-37) 33g/dL (31-37) Red Cell Distribution Width 15.1% (11.5-14.5) 14.7% (11.5-14.5) Platelet Count 268x10^3/uL (140-400) 222x10^3/uL (140-400) Neutrophils (%) (Auto) 57% (31-73) 79% (31-73) Lymphocytes (%) (Auto) 28% (24-48) 11% (24-48) Monocytes (%) (Auto) 10% (0-9) 10% (0-9) Eosinophils (%) (Auto) 4% (0-3) 0% (0-3) Basophils (%) (Auto) 1% (0-3) 0% (0-3) Neutrophils # (Auto) 4.2x10^3uL (1.8-7.7) 9.0x10^3uL (1.8-7.7) Lymphocytes # (Auto) 2.1x10^3/uL (1.0-4.8) 1.2x10^3/uL (1.0-4.8) Monocytes # (Auto) 0.8x10^3/uL (0.0-1.1) 1.2x10^3/uL (0.0-1.1) Eosinophils # (Auto) 0.3x10^3/uL (0.0-0.7) 0.0x10^3/uL (0.0-0.7) Basophils # (Auto) 0.0x10^3/uL (0.0-0.2) 0.0x10^3/uL (0.0-0.2) Urine Test Negative (NEG) Laboratory Tests Test 01/17/17 03:48 White Blood Count 11.4x10^3/uL (4.0-11.0) Red Blood Count 3.61x10^6/uL (3.50-5.40) Hemoglobin 10.2g/dL (12.0-15.5) Hematocrit 31.2% (36.0-47.0) Mean Corpuscular Volume 86fL (79-100) Mean Corpuscular Hemoglobin 28pg (25-35) Mean Corpuscular Hemoglobin Concent 33g/dL (31-37) Red Cell Distribution Width 14.7% (11.5-14.5) Platelet Count 222x10^3/uL (140-400) Neutrophils (%) (Auto) 79% (31-73) Lymphocytes (%) (Auto) 11% (24-48) Monocytes (%) (Auto) 10% (0-9) Eosinophils (%) (Auto) 0% (0-3) Basophils (%) (Auto) 0% (0-3) Neutrophils # (Auto) 9.0x10^3uL (1.8-7.7) Lymphocytes # (Auto) 1.2x10^3/uL (1.0-4.8) Monocytes # (Auto) 1.2x10^3/uL (0.0-1.1) Eosinophils # (Auto) 0.0x10^3/uL (0.0-0.7) Basophils # (Auto) 0.0x10^3/uL (0.0-0.2) Problem List Problems Medical Problems: (1) Abnormal uterine bleeding (AUB) Status: Acute (2) Fibroid uterus Status: Acute Assessment/Plan A: POD#1 s/p ROSALES & BSO P: Continue post op care. Encourage ambulation. Problems: ANTONIO KIMBLE Jr, MD Jan 17, 2017 13:24
[2017-01-17] MEDS: IBUPROFEN 800 MG TABLET. PO PRN (13:58)
[2017-01-17] MEDS ORDERED: FLUTICASONE 50MCG/NASAL SPRAY 16GM BOTTLE. NS PRN (15:15)
[2017-01-17] MEDS: LISINOPRIL 10 MG TABLET PO SCH (16:00)
[2017-01-17] MEDS: HYDROCHLOROTHIAZIDE 12.5 MG CAPSULE. PO SCH (16:00)
--- NOTE | 2017-01-17 17:13 | PATHOLOGY ---
PATHOLOGY REPORT * * * * * * * * FINAL DIAGNOSIS: Uterus and bilateral fallopian tubes and ovaries, total abdominal hysterectomy with bilateral salpingo-oophorectomy: - Leiomyomas, uterine corpus, subserosal and intramural, multiple, the largest measuring 9.5 cm in greatest dimension. - Mild chronic cervicitis with focal squamous metaplasia. - Disordered proliferative endometrium. - Paratubal cysts. - Cystic follicles of ovaries. COMMENT: There is no evidence of malignancy. (JPM:mgsourav; d/t: 01/17/17) REPORT ELECTRONICALLY SIGNED BY: Nilesh Gutierrez M.D. DATE/TIME: 01/17/2017 16:24 * * * * * * * * GROSS PATHOLOGY: The specimen is received in formalin and is designated "uterus with cervix and fibroids and bilateral tubes and ovaries." The specimen is received in five parts. The first consists of a uterine cervix which weighs 22.5 grams and measures 6.0 cm in length and up to 3.3 cm in width. The exocervical epithelium is pale de la rosa and focally reddened and erythematous. The central os measures 0.2 cm. The segment is opened longitudinally. The squamocolumnar junction is well demarcated. The endocervical mucosa is de [place] rosa furrowed and glistening. [employer] sections are submitted as A1. The next specimen consists of a slightly lobulated segment of pink-de la rosa rubbery tissue which weighs 11.6 grams, and measures up to 4.0 x 2.6 x 2.6 cm. This is partially covered by focally hemorrhagic serosa. The remaining external surface is roughened. Sectioning reveals two fibroids having a de [place]sa white whorled rubbery cut surface. The smallest one measures 1.1 cm; the larger measures 2.4 cm in greatest dimension. [employer] sections are submitted as A2. The next specimen consists of an enlarged smooth globoid uterine corpus, which weighs 619 grams and measures up to 13.0 cm in length, 10.0 cm in width, and 8.7 cm in thickness. The serosal surface is pink to reddish de [place] rosa and smooth. There is a small [place]sa white slightly bulging fibroid measuring up to 1.3 cm. The point of apparent transection of the uterine cervix is identified on the inferior aspect of the uterine corpus. Adjacent to the area of transection, there are three de la rosa-white fibroids ranging from 0.5 cm up to 2.2 cm in greatest dimension. There are also two segments of de [place] rosa and purple tissue with attached suture which may represent segments of tubal tissue. Sections from the subserosal fibroids are submitted as A3 and A4. Sections from the possible tubal tissue are submitted as A5. The uterine corpus is sectioned. The endometrial cavity is compressed inferiorly by a large intramural fibroid. The endometrium is de la rosa-red and uniform and measures 0.1 cm in thickness. The intramural fibroid measures up to 9.5 cm in greatest dimension. This has a pink-de la rosa white whorled rubbery cut surface. There are no necrotic or fleshy areas. Sections from the endometrium are submitted as A6 and A7. Sections from the large intramural fibroid are submitted as A8 and A9. The next specimen consists of a segment of fallopian tube with attached ovary which weighs 9.4 grams. The fimbriated fallopian tube measures 5.0 cm in length. The tubal serosa is pink to reddish de [place] rosa and focally erythematous. There is a pedunculated cyst present near the fimbriated end measuring up to 0.6 cm. There is an additional paratubal cyst measuring up to 0.8 cm. The attached pink-de la rosa cerebriform ovary measures up to 3.3 x 2.1 x 1.4 cm. Sectioning the ovary reveals a yellow-de [place] rosa rubbery cut surface with a small hemorrhagic cyst measuring up to 0.7 cm and several small yellow gold corpora lutea. Sections of the adnexa are submitted as A10. The last specimen consists of an apparent excised pink-de la rosa fibroid with adherent ovary. The specimen weighs 174 grams. The apparent excised fibroid measures up to 8.5 cm in greatest dimension. Attached along one side of the specimen is an elongate pink-de la rosa fallopian tube which measures up to 4.8 cm in length. Also attached to the fibroid, is a pink-de la rosa cerebriform ovary measuring up to 3.7 x 2.1 x 1.2 cm in greatest dimension. On sectioning, the fibroid has a de la rosa-white whorled rubbery cut surface. There are no necrotic or fleshy areas. Sectioning of the ovary reveals a small cyst measuring 0.5 cm and two small yellow gold corpora lutea. Sections of the fallopian tube and ovary are submitted as A11 and A12. Sections of the fibroid are submitted as A13 and A14. (JPM:mgsourav; d/t: 01/16/17) INITIAL CPT CODE(S): A; 59461 Professional services performed [place] [facility] [place] [address] Technical services performed by [facility] at [address] [place] [address], [facility] [address], [place] [address]. SPECIMEN(S) RECEIVED: A.Uterus with cervix and fibroids and bilateral tubes and ovaries CLINICAL HISTORY: Abnormal uterine bleeding, fibroid uterus PATIENT: DARIEL GUTIERREZ /AGE: 603/13/1965 (Age: 51) PATIENT #: [id number] ALT CASE #: SPECIMEN COLLECTION DATE: 01/16/2017 SPECIMEN RECEIVED DATE: 01/16/2017 [facility] - [address] [place] [address] - PHONE: [phone] * * * END OF REPORT * * *
[2017-01-17] MEDS: MONTELUKAST SODIUM 10 MG TABLET. PO SCH (21:28)
[2017-01-17 23:00] VITALS: BP 90/54
[2017-01-18] MEDS: IBUPROFEN 800 MG TABLET. PO PRN ×2 (05:26→13:40)
[2017-01-18] MEDS: GABAPENTIN 300 MG CAPSULE. PO SCH ×3 (05:27→22:04)
[2017-01-18] MEDS: SIMETHICONE 80 MG TAB.CHEW PO PRN ×2 (05:27→13:54)
[2017-01-18 05:51] VITALS: BP 103/68
--- NOTE | 2017-01-18 08:22 | PDOC ---
SURGICAL PROGRESS NOTE Subjective PT. feeling well. She reports gas pains. She is tolerating liquids and will advance to regular diet. Vital Signs Vital Signs Date Time Temp Pulse Resp B/P Pulse Ox O2 Delivery O2 Flow Rate FiO2 01/18/17 05:51 98.1 79 18 103/68 98.1 01/17/17 23:00 95 Room Air PATIENT HAS A LAWRENCE: No General: Alert, Oriented X3, Cooperative HEENT: Atraumatic Lungs: Clear to auscultation Heart: Regular rate Abdomen: Normal bowel sounds, Soft, No masses, Other (mild distension with mild tenderness. Incision site: clean, dry and intact) Extremities: No edema Psych/Mental Status: Mental status NL Labs Laboratory Tests Test 01/16/17 08:20 01/17/17 03:48 White Blood Count 7.3x10^3/uL (4.0-11.0) 11.4x10^3/uL (4.0-11.0) Red Blood Count 4.43x10^6/uL (3.50-5.40) 3.61x10^6/uL (3.50-5.40) Hemoglobin 12.7g/dL (12.0-15.5) 10.2g/dL (12.0-15.5) Hematocrit 38.6% (36.0-47.0) 31.2% (36.0-47.0) Mean Corpuscular Volume 87fL (79-100) 86fL (79-100) Mean Corpuscular Hemoglobin 29pg (25-35) 28pg (25-35) Mean Corpuscular Hemoglobin Concent 33g/dL (31-37) 33g/dL (31-37) Red Cell Distribution Width 15.1% (11.5-14.5) 14.7% (11.5-14.5) Platelet Count 268x10^3/uL (140-400) 222x10^3/uL (140-400) Neutrophils (%) (Auto) 57% (31-73) 79% (31-73) Lymphocytes (%) (Auto) 28% (24-48) 11% (24-48) Monocytes (%) (Auto) 10% (0-9) 10% (0-9) Eosinophils (%) (Auto) 4% (0-3) 0% (0-3) Basophils (%) (Auto) 1% (0-3) 0% (0-3) Neutrophils # (Auto) 4.2x10^3uL (1.8-7.7) 9.0x10^3uL (1.8-7.7) Lymphocytes # (Auto) 2.1x10^3/uL (1.0-4.8) 1.2x10^3/uL (1.0-4.8) Monocytes # (Auto) 0.8x10^3/uL (0.0-1.1) 1.2x10^3/uL (0.0-1.1) Eosinophils # (Auto) 0.3x10^3/uL (0.0-0.7) 0.0x10^3/uL (0.0-0.7) Basophils # (Auto) 0.0x10^3/uL (0.0-0.2) 0.0x10^3/uL (0.0-0.2) Urine Test Negative (NEG) Problem List Problems Medical Problems: (1) Abnormal uterine bleeding (AUB) Status: Acute (2) Fibroid uterus Status: Acute Assessment/Plan A: POD#2 s/p ROSALES & BSO P: Continue post op care. Anticipate d/c home tomorrow. Problems: ANTONIO KIMBLE Jr, MD Jan 18, 2017 08:22
[2017-01-18] MEDS ORDERED: NON FORMULARY ITEM (Lisinopril/Hydrochlorothiazide (Lisinopril-Hctz 10-12.5 Mg Tab) 1 TAB) PO SCH (09:00)
[2017-01-18 10:30] VITALS: BP 100/56
[2017-01-18 17:00] VITALS: BP 111/50
[2017-01-18] MEDS ORDERED: ACETAMINOPHEN 500 MG TABLET PO PRN (17:00)
[2017-01-18] MEDS: HYDROCHLOROTHIAZIDE 12.5 MG CAPSULE. PO SCH (17:10)
[2017-01-18] MEDS: LISINOPRIL 10 MG TABLET PO SCH (17:10)
[2017-01-18] MEDS: MONTELUKAST SODIUM 10 MG TABLET. PO SCH (17:11)
[2017-01-18 20:42] VITALS: BP 116/72
[2017-01-19] MEDS: IBUPROFEN 800 MG TABLET. PO PRN (03:30)
[2017-01-19 04:02] VITALS: BP 120/75
[2017-01-19] MEDS: GABAPENTIN 300 MG CAPSULE. PO SCH (07:07)
--- NOTE | 2017-01-19 08:18 | PDOC ---
SURGICAL PROGRESS NOTE Subjective Pt. feeling well. Flatus and bowel movement. Pain controlled. Ambulating and voiding without difficulty. Vital Signs Vital Signs Date Time Temp Pulse Resp B/P Pulse Ox O2 Delivery O2 Flow Rate FiO2 01/19/17 04:02 98.0 93 18 120/75 94 Room Air 98.0 PATIENT HAS A LAWRENCE: No General: Alert, Oriented X3, Cooperative HEENT: Atraumatic Lungs: Clear to auscultation Heart: Regular rate Abdomen: Normal bowel sounds, Soft, No tenderness, Other (Incision site: clean , dry and intact) Extremities: No edema Psych/Mental Status: Mental status NL Problem List Problems Medical Problems: (1) Abnormal uterine bleeding (AUB) Status: Acute (2) Fibroid uterus Status: Acute Assessment/Plan A: POD#3 s/p ROSALES & BSO P: D/c home. Problems: ANTONIO KIMBLE Jr, MD Jan 19, 2017 08:18
--- NOTE | 2017-01-19 08:19 | DISCH ---
DISCHARGE INSTRUCTIONS Condition on Discharge Condition on Discharge: Stable Activity After Discharge Activity Instructions for Disc: Activity as tolerated Lifting Instructions after Dis: No heavy lifting Driving Instructions after Dis: No driving for 2 weeks Diet after Discharge Diet after Discharge: Regular Contacting the [facility] after DC Call your doctor for: Concerns you may have Follow-Up Follow up with: Dr. Kurtz in 2 weeks. ANTONIO KURTZ Jr, MD Jan 19, 2017 08:19
[2017-01-19] MEDS ORDERED: IBUP-1060 PO (08:20)
[2017-01-19 09:40] VITALS: BP 107/53
== END 2017-01-19 10:40 | disposition home or self-care (01) | DRG 743 ==
LOC: OPSVCIP 07:54 → 3 NORTH 14:00
PROVIDERS: ADMIT Obstetrics & Gynecology; ATTEND Obstetrics & Gynecology
PROC: 0UT90ZZ Resection of Uterus, Open Approach (ICD-10-PCS; 2017-01-16)
PROC: 0UT70ZZ Resection of Bilateral Fallopian Tubes, Open Approach (ICD-10-PCS; 2017-01-16)
PROC: 0UT20ZZ Resection of Bilateral Ovaries, Open Approach (ICD-10-PCS; 2017-01-16)
PROC: 0UTC0ZZ Resection of Cervix, Open Approach (ICD-10-PCS; principal; 2017-01-16 10:00)
DX: D25.9 Leiomyoma of uterus, unspecified (principal); N93.9 Abnormal uterine and vaginal bleeding, unspecified; K59.00 Constipation, unspecified; Z88.8 Allergy status to other drugs, medicaments and biological substances; Z90.49 Acquired absence of other specified parts of digestive tract
CPT/HCPCS: 36415; 81025; 85027; 86850; 86900; 86901; 88307; J0690; J0780; J1100; J1170; J1885; J2250; J2270; J2370; J2405; J2704; J2710; J3010; J3490; J7120